=== PATIENT | female | born 1975 | race Caucasian/White ===

== ENCOUNTER → 2017-12-28 16:05 | Outpatient (CLI) | payer OTHER, MEDICAID, SELFPAY | PROVIDERS: Family Provider Family Medicine; PCP Family Medicine | DX: N39.0 Urinary tract infection, site not specified (principal) | CPT/HCPCS: 87086; 87088; 87186 ==

== ENCOUNTER 2019-11-04 02:18 | Emergency (ER) | payer MEDICAID, SELFPAY ==
[2019-11-04 02:20] VITALS: BP 135/92; PULSE 67; RESP 18; TEMP 36.4; O2SAT 100; BMI 33.0
--- NOTE | 2019-11-04 02:45 | RAD_ITS ---
STUDY: X-RAY - RIGHT HAND, ATTENTION 1st FINGER REASON FOR EXAM: Female, 44 years old. C/o pain entire rt thumb and 1st metacarpal after playing football TECHNIQUE: 3 view(s) of the finger were obtained. COMPARISON: None. FINDINGS: Normal metacarpal head. Normal metacarpophalangeal joint. Normal proximal phalanx. Normal middle phalanx. Normal distal phalanx. Normal proximal interphalangeal joint. Normal distal interphalangeal joint. RAD/Finger(s) Min 2 Views IMPRESSION: Normal x-ray examination of the finger. Electronically Signed: Jennifer Blank MD at 3:17 EDT Tel , Service support ,
--- NOTE | 2019-11-04 02:46 | ED.DCSUM_ITS ---
History of Present Illness Chief Complaint: Upper Extremity Injury Informant: Patient Occurred: Hours - 7-8 Mechanism/Context: Injury Context: Sudden Onset Timing: Continuous Quality of Pain: - - sore Location: right thumb Current Severity: Moderate Maximum Severity: Moderate Worsened by: movement Relieved by: remaining still Associated Symptoms: Negative for: Parasthesia, Weakness, Loss of Funtion Narrative: Jammed while playing football with son. RHD. Past Medical History - Allergies and Home Meds Allergies/Adverse Reactions: Allergies No Known Allergies Allergy (Verified 11/04/19 02:23) Primary Care Physician: Jesse Herbert MD [Primary Care Provider] - 10-14 Days if not better (if not improving) Past Medical History: None Lives: With Family Smoking Status: Never smoker Review of Systems General: Denies: Chills, Fever, Sweats Musculoskeletal: Reports: Extremity Pain Neurological: Denies: Headache, Weakness, Numbness Physical Exam Vital Signs/Narrative: Vital Signs Temp Pulse Resp BP Pulse Ox 11/04/19 02:20 97.6 F L 67 18 135/92 H 100 General: Well nourished, Well developed, - - NAD Head: Normocephalic, Atraumatic Extremeties: FROM R hand and thumb, able to oppose but w/ pain. tender t hroughout R thumb metacarpal, CMCJ, MCPJ, less at IPJ. mainly tender at MCPJ. no swelling or instability of collateral ligaments. all tendon function intact. no other areas of tenderness in hand/wrist. Skin: Normal color, No rash, No Trauma - skin intact R hand Neurological: Alert, Oriented x3, Cranial nerves II-XII grossly intact, Normal Strength, Normal Sensation, Normal Gait Psychological: Normal affect, Normal Mood Diagnostic/Tx/Re-eval - Medical Decision Making On my interpretation, 3 views Xray of the right thumb show no fracture or dislocation. Pt placed in a thumb spica splint, given ibuprofen, and appropriate discharge instructions for likely sprain of MTPJ of the R thumb. ED Disposition - Plan for ED Patient: Disposition: Home or Assisted Living Diagnosis: Sprain of right thumb Instructions: ED Sprain Finger Referrals: Jesse Herbert MD [Primary Care Provider] - 10-14 Days if not better (if not improving)
[2019-11-04] MEDS: Ibuprofen 600 MG Tablet PO (02:48)
[2019-11-04 03:10] VITALS: BP 135/92; PULSE 67; RESP 18; O2SAT 100
== END 2019-11-04 03:11 | disposition home or self-care (01) ==
LOC: ED 03:04
PROVIDERS: Emergency Provider Emergency Medicine; PCP Family Medicine
DX: S63.601A Unspecified sprain of right thumb, initial encounter (principal); W23.0XXA Caught, crushed, jammed, or pinched between moving objects, initial encounter; Y93.61 Activity, american tackle football; Y92.9 Unspecified place or not applicable
CPT/HCPCS: 73140; 99283

== ENCOUNTER → 2020-07-10 | Outpatient (CLI) | payer MEDICAID, SELFPAY | END | disposition home or self-care (01) | LOC: LABSPEC 12:18 | PROVIDERS: PCP Family Medicine; Visit Provider Family Medicine | DX: R30.0 Dysuria (principal) | CPT/HCPCS: 87086; 87088; 87186 ==

== ENCOUNTER → 2021-02-05 09:08 | Outpatient (CLI) | payer MEDICAID, SELFPAY ==
--- NOTE | 2021-02-05 09:27 | RAD_ITS ---
STUDY: X-RAY - RIGHT KNEE REASON FOR EXAM: Female, 45 years old. Right knee pain TECHNIQUE: 4 view(s) of the knee. COMPARISON: None. FINDINGS: Normal visualized distal femur. Normal visualized proximal tibia and fibula. Normal proximal tibiofibular articulation. Normal medial femorotibial compartment. Normal lateral femorotibial compartment. Normal patellofemoral articulation. Tiny triquetral osteophytes. Small suprapatellar knee joint effusion. Swelling of the soft tissues anterior to the patellar tendon. RAD/Knee 4 or More Views IMPRESSION: Mild DJD with small patellar knee joint effusion. Findings suggestive infrapatellar bursitis. Electronically Signed: Juan A Chaudhari MD at 8:47 EDT Tel , Service support ,
== END ==
PROVIDERS: PCP Family Medicine; Referring Provider Family Medicine; Visit Provider Family Medicine
DX: M25.561 Pain in right knee (principal)
CPT/HCPCS: 73564

== ENCOUNTER → 2021-03-02 07:53 | Outpatient (CLI) | payer MEDICAID, SELFPAY ==
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
== END ==
PROVIDERS: PCP Family Medicine; Referring Provider Family Medicine; Visit Provider Family Medicine
DX: S83.411A Sprain of medial collateral ligament of right knee, initial encounter (principal)
CPT/HCPCS: 73721

== ENCOUNTER → 2021-03-12 | Outpatient (CLI) | payer MEDICAID, SELFPAY | END | disposition home or self-care (01) | LOC: LABSPEC 03-13 08:15 | PROVIDERS: PCP Family Medicine; Visit Provider Family Medicine | DX: R30.0 Dysuria (principal) | CPT/HCPCS: 87086; 87088 ==

== ENCOUNTER 2021-04-01 08:00 | Outpatient (RCR) | payer MEDICAID, SELFPAY ==
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
--- NOTE | 2021-07-08 15:50 | HP.PT.NRP ---
SHANDA RAMSEY was seen in my office for initial evaluation on 02/13/21. The following Plan of Care was established for this patient: Initial Frequency: 2-3x /Week Initial Duration: 4-6 Weeks Patient/Client Instruction: Educate patient on: Condition, Plan of Care For the Purpose of:: To improve self management Therapeutic Exercise to Include: Strength training, Endurance training, Balance training, Flexibilty training, Active ROM, Dynamic Lumbar Stabilization For the Purpose of:: To decrease pain, To increase ROM, To improve muscle performance and motor function Cryotherapy (ice pack, ice massage): Yes For the Purpose of:: To decrease pain, To increase ROM, To improve muscle performance and motor function This patient was last seen in our office . Pertinent comments regarding their Physical therapy will appear below: Pt was treated for 10 PT visits for R knee pain through the date of 04/01/21. Pt has not returned through today and is therefore discontinued at this time. At this point I will be discontinuing this patient from physical therapy. I would be happy to see this patient again in the future if found appropriate by the physician. Thank you! Jona Garcia, PT, ATC Balance/Gait/Functional tests - Balance/Special Test Scores Lower Extremity Functional Score: 35
== END 2021-04-01 19:00 | disposition home or self-care (01) ==
LOC: PT 08:00
PROVIDERS: PCP Family Medicine; Referring Provider Family Medicine; Visit Provider Family Medicine
DX: S83.91XD Sprain of unspecified site of right knee, subsequent encounter (principal)
CPT/HCPCS: 97110; 97161

== ENCOUNTER 2021-09-19 09:56 | Outpatient (CLI) | payer MEDICAID, SELFPAY ==
--- NOTE | 2021-09-19 09:59 | RAD_ITS ---
STUDY: X-RAY - LUMBOSACRAL SPINE REASON FOR EXAM: Female, 46 years old. Radiating low back pain TECHNIQUE: 7 view(s) of the lumbosacral spine were obtained. COMPARISON: None FINDINGS: Normal lumbar lordosis. There is no substantial scoliosis. There is normal alignment of the vertebrae. Normal vertebral bodies and endplates. Upper disc spaces well-maintained there is mild disc space narrowing at L4-5 and significant disc space narrowing at L5/S1. No instability in flexion or extension views Normal bilateral sacral ala, sacroiliac joints, and visualized sacrum. Normal visualized soft tissue structures. RAD/L/S Spine w Bend Min 6 Vw IMPRESSION: Degenerative changes in the lower lumbar spine most pronounced at L5/S1. No demonstrated instability Electronically Signed: Tod Boss MD at 17:15 EDT ,
== END 2021-09-19 23:59 | disposition home or self-care (01) ==
LOC: MTRAD 09:57
PROVIDERS: PCP Family Medicine; Referring Provider Family Medicine; Visit Provider Family Medicine
DX: M51.36 Other intervertebral disc degeneration, lumbar region (principal)
CPT/HCPCS: 72114

== ENCOUNTER → 2022-03-03 | Outpatient (CLI) | payer MEDICAID, SELFPAY | END | disposition home or self-care (01) | PROVIDERS: PCP Family Medicine; Visit Provider Family Medicine | DX: N39.0 Urinary tract infection, site not specified (principal) | CPT/HCPCS: 87086; 87088 ==

== ENCOUNTER → 2022-03-12 | Outpatient (CLI) | payer MEDICAID, SELFPAY ==
[2022-03-12 12:18] LABS: Mucous, Urine 0 SEEN /hpf (<or=2+)
[2022-03-12 12:38] LABS: Color, Urine Yellow (Yellow); Glucose, Dipstick Normal (Normal); Ketone-Dipstick Negative (Negative); Leukocyte Esterase-Dipstick 100 /ul (Negative); Nitrite-Dipstick Positive (Negative); Occult Blood-Urine 25 /ul (Negative); Protein-Dipstick 30 mg/dl (Negative); Specific Gravity, Urine 1.015 (1.002-1.030); Urine Bilirubin Dipstick Negative (Negative); Urine Clarity Sl. Cloudy (Clear); Urine Urobilinogen 1 mg/dl (Normal)
[2022-03-12 12:45] LABS: Bacteria 2+ /hpf (None Seen); Red Blood Cells-Urine 0-5 SEEN /hpf (0-5); Squamous Epithelial Cells - UA 5-10 SEEN /hpf (5-10); White Blood Cells 10-25 SEEN /hpf (0-5)
== END | disposition home or self-care (01) ==
LOC: LABSPEC 12:10
PROVIDERS: PCP Family Medicine; Visit Provider Nurse Practitioner Family
DX: N39.0 Urinary tract infection, site not specified (principal)
CPT/HCPCS: 81001; 87077; 87086; 87088; 87186

== ENCOUNTER → 2022-08-29 | Outpatient (CLI) | payer MEDICAID, SELFPAY ==
--- NOTE | 2022-08-29 09:47 | RAD_ITS ---
STUDY: X-RAY - LEFT FOOT CLINICAL: Female, 47 years old. Foot pain. TECHNIQUE: 3 view(s) of the foot. COMPARISON: None. FINDINGS: Small inferior calcaneal spur. Normal visualized subtalar, talonavicular, calcaneocuboid, tarsal and tarsometatarsal articulations. Normal metatarsi. Mild arthrosis of the MTP and IP joints with hammertoe deformities. Normal soft tissues. RAD/Foot min 3 Views IMPRESSION: Inferior calcaneal spur with mild arthrosis of the MTP and IP joints with hammertoe deformities. Electronically Signed: Osvaldo Mckeon, at 15:41 EST ,
--- NOTE | 2022-08-29 09:47 | RAD_ITS ---
STUDY: X-RAY - RIGHT FOOT CLINICAL: Female, 47 years old. Foot pain. TECHNIQUE: 3 view(s) of the foot. COMPARISON: February 2017. FINDINGS: Stable small inferior calcaneal spur. Normal visualized subtalar, talonavicular, calcaneocuboid, tarsal and tarsometatarsal articulations. Normal metatarsi. Moderate arthrosis of the MTP and IP joints with hammertoe deformities. The soft tissue structures are unremarkable. RAD/Foot min 3 Views IMPRESSION: Stable calcaneal spur and arthrosis of the MTP and IP joints. No acute abnormality, chondrocalcinosis or erosive changes. Electronically Signed: Osvaldo Mckeon, at 10:00 EST ,
== END | disposition home or self-care (01) ==
LOC: MTRAD 09:45
PROVIDERS: PCP Family Medicine; Referring Provider Family Medicine; Visit Provider Family Medicine
DX: M79.673 Pain in unspecified foot (principal)
CPT/HCPCS: 73630

== ENCOUNTER → 2022-09-03 | Outpatient (CLI) | payer MEDICAID, SELFPAY | END | disposition home or self-care (01) | PROVIDERS: PCP Family Medicine; Referring Provider Nurse Practitioner Family; Visit Provider Nurse Practitioner Family | DX: R35.0 Frequency of micturition (principal) | CPT/HCPCS: 87086; 87088; 87186 ==

== ENCOUNTER → 2023-06-05 | Outpatient (CLI) | payer MEDICAID, SELFPAY | END | disposition home or self-care (01) | LOC: MTLAB 14:07 | PROVIDERS: PCP Family Medicine; Referring Provider Family Medicine; Visit Provider Family Medicine | DX: B89 Unspecified parasitic disease (principal) | CPT/HCPCS: 87177; 87209 ==

== ENCOUNTER → 2023-06-06 | Outpatient (CLI) | payer MEDICAID, SELFPAY ==
--- NOTE | 2023-06-06 12:08 | MRI_ITS ---
STUDY: MRI RIGHT ANKLE WITHOUT CONTRAST REASON FOR EXAM: Female, 48 years old. Right ankle, plantar fascial fibromatosis. TECHNIQUE: Standardized fat and water weighted pulse sequences were obtained in all 3 orthogonal planes. COMPARISON: Right foot radiographs dated 08/29/2022. FINDINGS: Normal subcutis adipose space. There is minimal posterior tibialis tenosynovitis. Intact posterior tibialis tendon. Normal flexor digitorum longus tendon. Normal flexor hallucis longus tendon. Normal peroneus longus and brevis tendons. Normal tibialis anterior tendon. Normal extensor hallucis longus tendon. Normal extensor digitorum longus tendons. Normal Achilles tendon and teno-osseous insertion. There is mild thickening, increased intrasubstance signal, and perifascial edema involving the plantar fascial origin (sagittal STIR series 9 images 12-13), compatible with mild plantar fasciitis. Normal plantar calcaneal tubercles. Normal intrinsic muscles of the rearfoot. Normal distal tibiofibular syndesmotic ligamentous complex. Normal lateral ligamentous complex. Normal subtalar ligaments and sinus tarsi. Normal deltoid ligamentous complex. Normal plantar calcaneonavicular (spring) ligament. Normal tibiotalar articulation. Normal talar dome. Normal subtalar articulations. Normal talonavicular articulation. Normal calcaneocuboid articulation. Normal navicular-cuneiform articulations. MRI/Lower Ext Joint Only (Routine) IMPRESSION: Mild plantar fasciitis. Minimal posterior tibialis tenosynovitis. Electronically Signed: Silvino Guerra MD at 8:48 EST ,
== END | disposition home or self-care (01) ==
PROVIDERS: PCP Family Medicine; Visit Provider Podiatrist
DX: M72.2 Plantar fascial fibromatosis (principal)
CPT/HCPCS: 73721

== ENCOUNTER → 2023-07-07 | Outpatient (CLI) | payer MEDICAID, SELFPAY ==
--- OUTSIDE RECORDS SUMMARY | 2023-07-07 17:16 | XMS RPT_ITS | CCD ---
Author Name Unknown Address [facility] [place] [address] Organization [facility] Care Team Providers Care Milk Pickup Truck Driver Name Role Phone TAMIKO CAMP Attending Unavailable DARION VALENCIA MD Consulting Unavailab DARION Read MD Referring Unavailab TAMIKO Mason Admitting Unavailable TAMIKO CAMP Primary Care Unavailable PROVIDER, UNKNOWN Consulting Unavailable DARION VALENCIA MD Consulting Unavailab le [place], [facility] Admitting Unava ilable [place], [facility] Primary Care Unava ilable [place], [facility] Attending Unava ilable PROVIDER, UNKNOWN Consulting Unavailable ALISTAIR SANTIAGO Attending Unavailable SYSTEM, PROVIDER NOT IN Primary Care Unavaila ble JACK, ALISTAIR PIERCE Admitting Unavailable ALISTAIR SANTIAGO Referring Unavailable SYSTEM, PROVIDER NOT IN Primary Care Unavaila ble Results Test Name Value Interpretation Reference Range Facil ity Encounters Encounter Date Encounter Type Care Provider Facility Start: 01-15-2021 End: 01-19-2021 Emergency department patient visit [facility] Start: 01-15-2021 End: 01-15-2021 Emergency department patient visit [facility] Start: 07-19-2020 End: 07-19-2020 Patient encounter procedure DARION VALENCIA [facility] Start: 2020 End: 2020 Emergency department patient visit TAMIKO CAMP [facility] Procedures Date Procedure Procedure Detail Performing Clinician Start: 2020 Urinalysis TAMIKO LOCO Payers Date Payer Category Payer Unknown [id number] 1975 Unknown [id number] 1975 Unknown [id number] 1975 Unknown [id number] Summary Purpose Family History No Family History Records FoundNo Family History Records FoundNo Family History Records Found Advance Directives No Advanced Directives Records FoundNo Advanced Directives Records FoundNo Advanced Directives Records Found Additional Source Comments INFORMATION SOURCE (unrecogn ized section and content) DATE CREATED AUTHOR AUTHOR'S ORGANIZ ATION 07/20/2020 [facility] DATE CREATED AUTHOR AUTHOR'S ORGANIZ ATION 02/22/2021 [facility] FOR RECORDS PERTAINING TO PATIENTS WHO ARE OR HAVE BEEN ENROLLED IN A CHEMICAL DEPENDENCY/SUBSTANCEABUSE PROGRAM, SOME INFORMATION MAY BE OMITTED. This clinical summary was aggregated from multiple sources. Caution should be exercised in using it in the provision of clinical care. This summary normalizes information from multiple sources, and as a consequence, information in this document may materially change the coding, format and clinical context of patient data. In addition, data may be omitted in some cases. CLINICAL DECISIONS SHOULD BE BASED ON THE PRIMARY CLINICAL RECORDS. [employer] [facility]. provides no warranty or guarantee of the accuracy or completeness of information in this document.
[2023-07-07 17:28] LABS: Hematocrit 42.8 % (37-47); Hemoglobin 13.7 g/dL (12.0-15.0); Mean Corpuscular Hgb 29.1 pg (27.0-32.0); Mean Corpuscular Volume 90.9 fL (81-99); Mean Platelet Vol. 9.3 fl (6.2-12.0); Platelet Count 304 K/mm3 (150-450); RBC Distribution Width CV 12.6 % (11.6-14.6); RBC Distribution Width SD 41.9 fl (35.1-43.9); Red Blood Count 4.71 M/mm3 (4.2-5.4); White Blood Count 8.6 K/mm3 (4.4-11.0)
[2023-07-07 17:52] LABS: Anion Gap 5 (5-15); BUN 16 mg/dL (7-18); BUN/Creat Ratio 17.4 RATIO (10-20); Calcium,Total 9.9 mg/dL (8.5-10.1); Chloride 104 mmol/L (98-107); Creatinine, Serum 0.92 mg/dL (0.55-1.02); EST Glomerular Filtration Rate 69 mL/min (>60); Est Glom Filt Rate - Afr Amer 83 mL/min (>60); Ferritin 96 ng/mL (8-252); Glucose 95 mg/dL (74-106); Iron 53 ug/dL (50-170); Potassium 3.7 mmol/L (3.5-5.1); Sodium Level 139 mmol/L (136-145)
[2023-07-08 16:52] LABS: T4 Free Direct 0.59 ng/dL (0.76-1.46)
== END | disposition home or self-care (01) ==
LOC: MTLAB 15:27
PROVIDERS: PCP Family Medicine; Referring Provider Family Medicine; Visit Provider Family Medicine
DX: Z01.818 Encounter for other preprocedural examination (principal); E03.9 Hypothyroidism, unspecified; D64.9 Anemia, unspecified
CPT/HCPCS: 36415; 80048; 82728; 83540; 84439; 84443; 85027

== ENCOUNTER 2023-07-17 05:59 | Day surgery (SDC) | payer MEDICAID, SELFPAY ==
--- OUTSIDE RECORDS SUMMARY | 2023-07-17 06:01 | XMS RPT_ITS | CCD ---
Author Name Unknown Address [address] [place] [address] Organization [facility] Care Team Providers Care Mail Room Name Role Phone TAMIKO CAMP Attending Unavailable DARION VALENCIA MD Consulting Unavailab DARION Read MD Referring Unavailab TAMIKO Mason Admitting Unavailable TAMIKO CAMP Primary Care Unavailable PROVIDER, UNKNOWN Consulting Unavailable DARION VALENCIA MD Consulting Unavailab le [place], [facility] Admitting Unava ilable [place], [facility] Primary Care Unava ilable [place], [facility] Attending Unava ilable PROVIDER, UNKNOWN Consulting Unavailable ALISTAIR SANTIAGO Attending Unavailable SYSTEM, PROVIDER NOT IN Primary Care Unavaila ble JACK, ALISTAIR PIERCE Admitting Unavailable ALISTAIR SANTIAGO Referring Unavailable SYSTEM, PROVIDER NOT IN Primary Care Unavaila ble Results Test Name Value Interpretation Reference Range Facil ity Encounters Encounter Date Encounter Type Care Provider Facility Start: 01-15-2021 End: 01-19-2021 Emergency department patient visit [facility] Start: 01-15-2021 End: 01-15-2021 Emergency department patient visit [facility] Start: 07-19-2020 End: 07-19-2020 Patient encounter procedure DARION VALENCIA [facility] Start: 2020 End: 2020 Emergency department patient visit TAMIKO CAMP [facility] Procedures Date Procedure Procedure Detail Performing Clinician Start: 2020 Urinalysis TAMIKO LOCO Payers Date Payer Category Payer Unknown [id number] 1975 Unknown [id number] 1975 Unknown [id number] 1975 Unknown [id number] Summary Purpose Family History No Family History Records FoundNo Family History Records FoundNo Family History Records Found Advance Directives No Advanced Directives Records FoundNo Advanced Directives Records FoundNo Advanced Directives Records Found Additional Source Comments INFORMATION SOURCE (unrecogn ized section and content) DATE CREATED AUTHOR AUTHOR'S ORGANIZ ATION 07/20/2020 [facility] DATE CREATED AUTHOR AUTHOR'S ORGANIZ ATION 02/22/2021 [facility] FOR RECORDS PERTAINING TO PATIENTS WHO ARE [...] BE BASED ON THE PRIMARY CLINICAL RECORDS. [employer] [facility]. provides no warranty or guarantee of the accuracy or completeness of information in this document.
[2023-07-17 06:28] VITALS: BP 135/91; PULSE 62; RESP 16; TEMP 36.8; O2SAT 100; BMI 33.5
[2023-07-17] MEDS: Lactated Ringers 1,000 ML 15 ML IV (06:31)
[2023-07-17 06:58] LABS: Internal QC Validated? YES +Cl - CLEAR BKGD; Pregnancy, Urine Negative Negative
[2023-07-17 07:13] LABS: AST(SGOT) 13 U/L (15-37); Alanine Aminotransfer ALT/SGPT 18 U/L (13-56); Albumin, Serum 3.9 g/dL (3.2-5.0); Alkaline Phosphatase 75 U/L (45-117); Anion Gap 4 (5-15); BUN 13 mg/dL (7-18); BUN/Creat Ratio 15.5 RATIO (10-20); Calcium,Total 9.3 mg/dL (8.5-10.1); Chloride 110 mmol/L (98-107); Creatinine, Serum 0.84 mg/dL (0.55-1.02); EST Glomerular Filtration Rate 76 mL/min (>60); Est Glom Filt Rate - Afr Amer 92 mL/min (>60); Estimated Creatinine Clearance 103.49 ml/min; Globulin 4.1 g/dL (2.2-4.2); Glucose 106 mg/dL (74-106); Potassium 3.6 mmol/L (3.5-5.1); Sodium Level 141 mmol/L (136-145)
[2023-07-17] MEDS: Cefazolin 2 GM in 0.9% Normal Saline (100mL Bag) 100 ML IV (07:29)
[2023-07-17] MEDS: Bupivacaine Mpf 0.5% 30 ML VIAL (07:53)
[2023-07-17 08:30] VITALS: BP 130/99; BP 135/91; PULSE 97; RESP 16; TEMP 36.1; O2SAT 99
[2023-07-17 08:35] VITALS: BP 129/93; BP 135/91; PULSE 101; RESP 16; O2SAT 100
--- NOTE | 2023-07-17 08:39 | PCM.OPRPT ---
Problems Associated Problem List Diagnoses (1) Plantar fascial fibromatosis: Report of Operation Date of Procedure: 07/17/23 Pre-Operative Diagnosis: Plantar fasciitis, right foot Post-Operative Diagnosis: Same Surgery/Procedure Performed:: Endoscopic plantar fasciotomy, right foot Injection viaflow right heel Description of Surgical Findings:: Patient had chronic plantar fasciitis failed conservative treatment consisting of daily Stretching custom orthotics injections. MRI confirmed diagnosis. Decision for endoscopic plantar fasciotomy to alleviate patient's symptoms was made. Along with injection of vital flow placental tissue product Surgeon: Leoncio Lopez process excellence manager: None (gianna penny) Type of Anesthesia: General Special Medications: 30cc 0.5% marcaine plain Specimen's removed: none Drains: none Estimated Blood Loss (mL): minimal Fluids Replaced: none Description of Procedure: Patient brought back the operating placed comfortably in supine position on the operating room table. All osseous prominences were offloaded to prevent any compression neuropraxia's. Patient induced under general anesthesia. Well-padded right thigh tourniquet applied. Right lower extremity was positioned using blankets and a hip bump to knock on external rotation. Right lower extremity was scrubbed prepped draped using typical aseptic fashion. Right lower extremity elevated exsanguinated tourniquet inflated to 300 mmHg. Once cleared by anesthesia a small stab incision was made medially through epidermis dermis into subcutaneous tissue with a 15 blade. This was made at the 1 cm distal to the medial calcaneal tuberosity where this plantar skin junction is dorsal skin. A spatula was used from the [employer] EPF kit to palpate the plantar fascia a trocar and cannula were inserted just inferior to the plantar fascial band and exited laterally where a stab incision was made to allow for Traversing of the trocar and cannula trocar was removed contact allocated for were placed to remove any interpositional tissue to allow for adequate visualization of the plantar fascial band 4 oh scope was inserted laterally central band of plantar fascia was noted hook blade was used to cut the central gland from lateral to medial the medial two thirds for transected. This was confirmed through visualization of the underlying intrinsic musculature. Sites were flushed with copious amounts normal sterile saline after removal of scope and all instrumentation. Incisional closure performed with horizontal mattress using 3-0 Prolene. Injectable via flow graft was injected to the plantar heel at the calcaneal tuberosity at the site of plantar fascial origin. Sites were dressed with bacitracin Adaptic 4 x 4's Kerlix and a well-padded AO splint with the foot in a rectus alignment relative to the leg. Patient transferred to PACU vital signs stable vascular status intact all digits for further monitoring prior to discharge. Patient tolerated procedure and anesthesia well apparent satisfactory condition. Patient will follow-up in 1 week maintain nonweightbearing status for the first 2 weeks until incisional healing. Complications None Admit VTE Documentation VTE Present on Admission: Yes VTE Pharm Prophylaxis ordered?: Yes
[2023-07-17 08:40] VITALS: BP 125/100; BP 135/91; PULSE 95; RESP 16; O2SAT 100
[2023-07-17 08:45] VITALS: BP 131/98; BP 135/91; PULSE 92; RESP 16; TEMP 36.1; O2SAT 99
[2023-07-17 09:37] VITALS: BP 135/91
== END 2023-07-17 09:45 | disposition home or self-care (01) ==
LOC: SDC 06:00 → AC 06:01
PROVIDERS: PCP Family Medicine; Referring Provider Podiatrist; Visit Provider Podiatrist
PROC: (CPT 29893; principal; 2023-07-17 07:15)
DX: M72.2 Plantar fascial fibromatosis (principal); D64.9 Anemia, unspecified; J45.909 Unspecified asthma, uncomplicated; E03.9 Hypothyroidism, unspecified
CPT/HCPCS: 29893; 01464; 80053; 81025; J7120

== ENCOUNTER → 2023-09-28 | Outpatient (CLI) | payer MEDICAID, SELFPAY ==
--- NOTE | 2023-09-28 10:15 | RAD_ITS ---
EXAM: XR LEFT HIP WITH PELVIS , 3 VIEWS CLINICAL INDICATION: pain TECHNIQUE: Two views of the left hip with AP pelvis. COMPARISON: No relevant prior studies available. FINDINGS: BONES/JOINTS: Unremarkable. No displaced fracture. No destructive or sclerotic lesions. Note that overlapping bowel shadows may however obscure fine detail. Sacroiliac joint is unremarkable. No widening of the pubic symphysis. The articular structures are unremarkable. SOFT TISSUES: Unremarkable. No soft tissue swelling or gas. RAD/HIP, UNI W/ Pelvis 2-3 Views IMPRESSION: No evidence of displaced pelvic or hip fracture. Electronically Signed: Jyoti Mora MD at 7:48 EDT ,
== END | disposition home or self-care (01) ==
LOC: MTRAD 10:14
PROVIDERS: PCP Family Medicine; Referring Provider Family Medicine; Visit Provider Family Medicine
DX: M25.552 Pain in left hip (principal)
CPT/HCPCS: 73502

== ENCOUNTER → 2024-03-04 | Outpatient (CLI) | payer MEDICAID, SELFPAY ==
[2024-03-04 16:25] LABS: Anion Gap 6 (5-15); BUN 12 mg/dL (7-18); BUN/Creat Ratio 12.8 RATIO (10-20); Calcium,Total 9.5 mg/dL (8.5-10.1); Chloride 105 mmol/L (98-107); Creatinine, Serum 0.94 mg/dL (0.55-1.02); EST Glomerular Filtration Rate 67 mL/min (>60); Est Glom Filt Rate - Afr Amer 82 mL/min (>60); Free T3 1.8 pg/mL (2.18-3.98); Glucose 94 mg/dL (74-106); Potassium 3.9 mmol/L (3.5-5.1); Sodium Level 139 mmol/L (136-145); T4 Free Direct 0.43 ng/dL (0.76-1.46)
[2024-03-06 09:07] LABS: Thyroid Peroxidase AB 70 IU/mL (0-34)
== END | disposition home or self-care (01) ==
LOC: MTLAB 13:36
PROVIDERS: PCP Family Medicine; Referring Provider Family Medicine; Visit Provider Family Medicine
DX: E03.9 Hypothyroidism, unspecified (principal); Z13.1 Encounter for screening for diabetes mellitus
CPT/HCPCS: 36415; 80048; 84439; 84443; 84481; 86376

== ENCOUNTER → 2024-06-08 | Outpatient (CLI) | payer MEDICAID, SELFPAY ==
[2024-06-08 16:11] LABS: T4 Free Direct 1.21 ng/dL (0.76-1.46); Thyroid Stim Hormone (TSH) 0.495 uIU/mL (0.358-3.740)
== END | disposition home or self-care (01) ==
LOC: MTLAB 12:47
PROVIDERS: PCP Family Medicine; Referring Provider Family Medicine; Visit Provider Family Medicine
DX: E03.9 Hypothyroidism, unspecified (principal)
CPT/HCPCS: 36415; 84439; 84443

== ENCOUNTER → 2024-07-12 | Outpatient (CLI) | payer MEDICAID, SELFPAY ==
[2024-07-12 15:39] LABS: Vitamin D,25 Hydroxy 20.1 ng/mL
[2024-07-12 15:53] LABS: ALB/GLOB Ratio 0.9 RATIO (0.9-2.4); AST(SGOT) 12 U/L (15-37); Alanine Aminotransfer ALT/SGPT 26 U/L (13-56); Albumin, Serum 3.7 g/dL (3.2-5.0); Alkaline Phosphatase 71 U/L (45-117); Anion Gap 5 (5-15); BUN 13 mg/dL (7-18); Calcium,Total 9.5 mg/dL (8.5-10.1); Chloride 106 mmol/L (98-107); Creatinine, Serum 0.81 mg/dL (0.55-1.02); EST Glomerular Filtration Rate 79 mL/min (>60); Est Glom Filt Rate - Afr Amer 96 mL/min (>60); Globulin 4.1 g/dL (2.2-4.2); Glucose 133 mg/dL (74-106); Magnesium 2.2 mg/dL (1.6-2.6); Potassium 4.3 mmol/L (3.5-5.1); Protein, Total 7.8 g/dL (6.4-8.2); Sodium Level 139 mmol/L (136-145); T4 Free Direct 1.29 ng/dL (0.76-1.46); Thyroid Stim Hormone (TSH) 0.168 uIU/mL (0.358-3.740)
[2024-07-12 15:55] LABS: Erythrocyte Sedimentation Rate 8 mm/hr (0-30)
[2024-07-12 15:58] LABS: Hematocrit 43.5 % (37-47); Hemoglobin 13.7 g/dL (12.0-15.0); Mean Corp Hgb Conc 31.5 g/dL (32-36); Mean Corpuscular Hgb 27.9 pg (27.0-32.0); Mean Corpuscular Volume 88.6 fL (81-99); Mean Platelet Vol. 9.7 fl (6.2-12.0); Platelet Count 282 K/mm3 (150-450); RBC Distribution Width CV 13.3 % (11.6-14.6); RBC Distribution Width SD 43.1 fl (35.1-43.9); Red Blood Count 4.91 M/mm3 (4.2-5.4); White Blood Count 7.3 K/mm3 (4.4-11.0)
== END | disposition home or self-care (01) ==
LOC: MTLAB 12:44
PROVIDERS: PCP Family Medicine; Referring Provider Family Medicine; Visit Provider Family Medicine
DX: R55 Syncope and collapse (principal); R63.5 Abnormal weight gain; E03.9 Hypothyroidism, unspecified
CPT/HCPCS: 36415; 80053; 82306; 82533; 83735; 84439; 84443; 85027; 85652

== ENCOUNTER → 2025-03-02 | Outpatient (CLI) | payer MEDICAID, SELFPAY ==
[2025-03-02 18:30] LABS: Free T3 2.7 pg/mL (2.18-3.98); Vitamin D,25 Hydroxy 33.1 ng/mL (30-100)
== END | disposition home or self-care (01) ==
PROVIDERS: PCP Family Medicine; Referring Provider Family Medicine; Visit Provider Family Medicine
DX: E03.9 Hypothyroidism, unspecified (principal)
CPT/HCPCS: 36415; 82306; 84439; 84443; 84481